=== PATIENT | female | born 1990 | race Caucasian/White ===

== ENCOUNTER 2017-05-29 16:03 | Emergency (ER) | payer OTHER ==
[2017-05-29 17:01] VITALS: BP 137/99; PULSE 77; TEMP 98.2; BMI 29.2
--- NOTE | 2017-05-29 17:03 | PDOC ---
History of Present Illness - General Chief Complaint: Psychiatric Stated Complaint: INSOMNIA Time Seen by Provider: 05/29/17 16:07 - History of Present Illness Initial Comments: 05/29/17 17:09 "The patient is a 26 year old female with no PMH who presents to the ED complaining of insomnia beginning approximately 2 weeks ago. The patient reports significant life stress from ending a relationship recently. She reports feeling very sad and anxious. The patient reports getting very little sleep due to her anxiety and only got 1 hour of sleep last night. Pt went to an Urgent care for the same issue last week and was prescribed amitriptyline. She took a few doses and reports no change in her symptoms. Pt has not seen a psychiatrist in the past, though she reports two similar episodes of sleep disturbances, both in the context of life stressors. She denies suicidal or homicidal ideations, denies auditory or visual hallucinations. The patient denies chest pain, shortness of breath, headache, and dizziness. Denies fevers, chills, nausea, vomiting, and diarrhea. Denies dysuria, frequency, urgency, and hematuria. Allergies: NKA Social history: No reported cigarette, alcohol, or drug use. " Review of Systems - Review of Systems Comments:: 05/29/17 17:00 "GENERAL/CONSTITUTIONAL: No fever or chills. No weakness. HEAD, EYES, EARS, NOSE AND THROAT: No change in vision. No ear pain or discharge. No sore throat. CARDIOVASCULAR: No chest pain or shortness of breath. RESPIRATORY: No cough, wheezing, or hemoptysis. GASTROINTESTINAL: No nausea, vomiting, diarrhea or constipation. GENITOURINARY: No dysuria, frequency, or change in urination. MUSCULOSKELETAL: No joint or muscle swelling or pain. No neck or back pain. SKIN: No rash NEUROLOGIC: No headache, vertigo, loss of consciousness, or change in strength/ sensation. ENDOCRINE: No increased thirst. No abnormal weight change. HEMATOLOGIC/LYMPHATIC: No anemia, easy bleeding, or history of blood clots. ALLERGIC/IMMUNOLOGIC: No hives or skin allergy. " *Physical Exam - Physical Exam Comments: 05/29/17 17:00 "GENERAL: Awake, alert, and fully oriented, in no acute distress HEAD: No signs of trauma EYES: PERRLA, EOMI, sclera anicteric, conjunctiva clear ENT: Auricles normal inspection, hearing grossly normal, nares patent, oropharynx clear without exudates. Moist mucosa NECK: Nontender, no stepoffs, Normal ROM, supple, no lymphadenopathy, JVD, or masses LUNGS: Breath sounds equal, clear to auscultation bilaterally. No wheezes, and no crackles HEART: Regular rate and rhythm, normal S1 and S2, no murmurs, rubs or gallops ABDOMEN: Soft, nontender, normoactive bowel sounds. No guarding, no rebound. No masses EXTREMITIES: Normal range of motion, no edema. No clubbing or cyanosis. No cords, erythema, or tenderness NEUROLOGICAL: Cranial nerves II through XII intact. 5/5 strength and sensation in all extremities, Normal speech, normal gait, normal cerebellar function SKIN: Warm, Dry, normal turgor, no rashes or lesions noted. " Medical Decision Making - Medical Decision Making 05/29/17 16:59 26 yo F with no PMH presenting to ED with difficulty sleeping x 2 weeks. Pt likely suffering mild depression in the context of recent break up with boyfriend. Pt not exhibiting any psychomotor agitation, no pressured speech, no signs of acute los. Not expressing any suicidal ideation, no HI/AVH. - F/u PMD and psychiatry on Friday as scheduled Pt is well appearing, with normal vitals. Clinically stable for DC at this time. I discussed the physical exam findings, ancillary test results and final diagnoses with the patient. I answered all of the patient's questions. The patient was satisfied with the care received and felt comfortable with the discharge plan and treatment plan. The patient agrees to follow up with the primary care physician within 24-72 hours. *DC/Admit/Observation/Transfer Diagnosis at time of Disposition: Insomnia - Discharge Dispostion Disposition: HOME - Referrals Referrals: Americo Garcia MD [Staff Physician] - - Patient Instructions Printed Discharge Instructions: DI for Insomnia, Mindful Meditation May Reduce Symptoms and Complications of Insomnia Additional Instructions: Please follow up with your primary doctor on Friday as scheduled. You should ask for a referral to a therapist or psychiatrist for further evaluation of your difficulty sleeping. You can call the number provided if you would like to see our psychiatrist. If you experience any worsening symptoms, thoughts of hurting yourself or others , or any other concerning symptoms, return to the ER immediately. - Post Discharge Activity - Attestations Physician Attestion: 05/29/17 17:02 I, Dr. Romeo Christensen MD, attest that this document has been prepared under my direction and personally reviewed by me in its entirety. I further attest, that it accurately reflects all work, treatment, procedures and medical decision -making performed by me.
== END 2017-05-29 17:48 | disposition home or self-care (01) ==
LOC: FER 16:03
DX: G47.00 Insomnia, unspecified (principal)
CPT/HCPCS: 99281-25

== ENCOUNTER 2017-05-31 07:53 | Emergency (ER) | payer OTHER ==
[2017-05-31 08:01] VITALS: TEMP 98.2; BMI 29.2
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
--- NOTE | 2017-05-31 09:03 | PDOC ---
Attending Attestation - Resident Resident Name: Mak Davis - ED Attending Attestation I have performed the following: I have examined & evaluated the patient, The case was reviewed & discussed with the resident, I agree w/resident's findings & plan, Exceptions are as noted - HPI HPI: 05/31/17 10:44 26y F no pmhx presents with complaint of insomnia for the past several weeks but worse the past 3 nights. Pt states she recently ended a relationship and is feeling sadness/regret and is unable to sleep. Pt denies any thoughts of harming herself or others. Pt has not seen a psychiatrist before, she also came to [facility] 2 days ago for similar symptoms. Pt denies an hallucinations. pt also denies any complaints of discomfort beside mild headache, no vision changes, cp , sob, palpitatons, leg sweling, urinary, bowel symptoms, fever/chills. GENERAL: The patient is awake, alert, and fully oriented, Nontoxic - in no acute distress. HEAD: Normocephalic, atraumatic. EYES: extraocular movements intact, sclera anicteric, conjunctiva clear. ENT: Normal voice, Moist mucous membranes. NECK: Normal range of motion, supple LUNGS: Breath sounds equal, clear to auscultation bilaterally. No wheezes, no rhonchi, no rales. HEART: Regular rate and rhythm, normal S1 and S2 without murmur, rub or gallop. ABDOMEN: Soft, nontender, EXTREMITIES: Normal range of motion, no edema. No clubbing or cyanosis. No cords, erythema, or tenderness. NEUROLOGICAL: No facial assymetry, Normal speech, PSYCH: flat affect SKIN: Warm, Dry, normal turgor, Suspect the patient has some depression/anxiety due to life stressors. The patient was given an anxiolytic in the ED with mild improvement of her symptoms. Discharge the patient on Xanax 0.25 mg twice a day as needed with follow-up with her PMD the patient notes she has a follow-up with Dr. Maher scheduled on Friday. I also discussed with the patient's different strategies to help alleviate her anxiety and depression. The patient is stable, no concern for SI/HI. - Physicial Exam PE: 05/31/17 10:50 see above - Medical Decision Making 05/31/17 10:50 see above
[2017-05-31] MEDS ORDERED: ALPRAZolam 0.25 MG TABLET PO ONE (09:05)
[2017-05-31] MEDS ORDERED: ALPRAZolam 0.25 MG TABLET ONE (09:39)
[2017-05-31] MEDS ORDERED: ACETAMINOPHEN 325 MG TABLET (FP) PO ONE (10:05)
[2017-05-31] MEDS ORDERED: ACETAMINOPHEN 325 MG TABLET (FP) ONE (10:45)
[2017-05-31 10:58] VITALS: BP 131/91; PULSE 80
== END 2017-05-31 10:58 | disposition home or self-care (01) ==
LOC: JER 07:53
DX: F41.0 Panic disorder [episodic paroxysmal anxiety] (principal); F32.9 Major depressive disorder, single episode, unspecified; G47.00 Insomnia, unspecified
CPT/HCPCS: 36415; 84443; 99283-25